=== PATIENT | male | born 1950 ===

== ENCOUNTER 2021-12-06 16:03 | Observation (INO) ==
[2021-12-06 12:22] LABS: Activated Partial Thrombo Time 36.3 seconds (26.0-38.0); INR 1.11 (0.86-1.15)
[~2021-12-06 16:03] MED LIST: Acetaminophen IV 1 GM/100ML 100 ML IV PRN; Buffered Lidocaine 1% SYRIN 1 ml INTRADERM ONE; Bupivacaine 0.5% SDV PF 30ML VIAL ONE; Clindamycin 900 MG/D5W BAG 900 MG/50 ML BAG IVPB ONE; DiMENhydriNATE IV 50 mg/ml 1 ml VIAL IV PUSH PRN; HYDROmorphone 1 MG/1 ML SYRINGE IV PRN; Lactated Ringers 1000 ml BAG 1,000 ML IV SCH; Lidocaine 1% MPF 5 ML VIAL ONE; Midazolam 2 mg/2 ml VIAL 1 mg/ml 2 ml VIAL (2 mg) ONE; Naloxone 0.4 mg VIAL 0.4 mg/ml 1 ml VIAL IV PRN; Ondansetron 4 mg VIAL 2 MG/ML 2 ml VIAL IV PRN; Propofol 10 MG/ML 20 ML BTL ONE; ROPIVACAINE 5 MG/ML 30 ML BTL (0.5%) ONE; Vancomycin 1,000 MG VIAL ONE; fentaNYL 100 mcg/2 ml 50 MCG/ML VIAL IV PRN; fentaNYL 100 mcg/2 ml 50 MCG/ML VIAL ONE
[2021-12-06] MEDS ORDERED: Magnesium Hydroxide LIQ 30 ML UDC PO PRN (16:20)
[2021-12-06] MEDS ORDERED: diPHENhydraMINE 25 mg TAB PO PRN (16:20)
[2021-12-06] MEDS ORDERED: diPHENhydraMINE IV 50 MG/ML 1 ml VIAL (BENADRYL) IV PRN (16:20)
[2021-12-06] MEDS ORDERED: Ondansetron ODT 4 mg TAB 4 MG TAB PO PRN (16:20)
[2021-12-06] MEDS ORDERED: Lactulose 30 ml UDC PO PRN (16:20)
[2021-12-06] MEDS ORDERED: Ondansetron 4 mg VIAL 2 MG/ML 2 ml VIAL IV PRN (16:20)
[2021-12-06] MEDS ORDERED: Morphine 2 MG/ML SYRINGE IV PRN (16:29)
[2021-12-06] MEDS ORDERED: Propofol 10 MG/ML 20 ML BTL ONE (16:30)
[2021-12-06] MEDS ORDERED: Ondansetron 4 mg VIAL 2 MG/ML 2 ml VIAL ONE (16:34)
[2021-12-06] MEDS ORDERED: Dexamethasone IV 4 MG/ML VIAL 1 ml VIAL ONE (16:34)
[2021-12-06] MEDS ORDERED: Lactated Ringers 1000 ml BAG 1,000 ML IV SCH (17:00)
[2021-12-06] MEDS: Magnesium Hydroxide LIQ 30 ML UDC PO SCH (21:28)
[2021-12-06] MEDS: Clindamycin 600 MG/D5W BAG 600 MG/50 ML BAG IV SCH (22:19)
[2021-12-07] MEDS: Clindamycin 600 MG/D5W BAG 600 MG/50 ML BAG IV SCH ×2 (05:34→13:00)
[2021-12-07 06:02] LABS: Hematocrit 32 % (42-52); Hemoglobin 10.5 g/dL (14.0-18.0); Mean Platelet Volume 8.9 fL (7.4-10.4); Platelet Count 192 10^3/uL (150-450)
[2021-12-07 07:47] LABS: Calcium 8.5 mg/dL (8.6-10.3); Potassium 4.5 mmol/L (3.5-5.0); eGFR CKD-EPI 73.5 (>60)
[2021-12-07] MEDS: Magnesium Hydroxide LIQ 30 ML UDC PO SCH (08:55)
[2021-12-07] MEDS ORDERED: Vitamin THERAPEUTIC TAB PO SCH (09:00)
[2021-12-07 11:31] VITALS: BP 143/69
== END 2021-12-07 15:15 | disposition home or self-care (01) ==
LOC: OR 16:03 → SSU 16:03
PROVIDERS: ADMIT Orthopaedic Surgery; ATTEND Orthopaedic Surgery